=== PATIENT | male | born 1940 | race African-American/Black ===

== ENCOUNTER 2016-09-21 08:32 | Inpatient (IN) | payer OTHER ==
[2016-09-21] VITALS (11 sets, daily range): BP systolic 120–144; BP diastolic 56–74
[~2016-09-21] VITALS: Ht 170.2 cm; Wt 73.2 kg
[~2016-09-21 08:32] MED LIST: ASPIR-LOW81 MG PO; ATORVASTATIN CA80 MG PO; CARVEDILOL6.25 MG PO; CLOPIDOGREL75 MG PO; LIPITOR20 MG PO; LISINOPRIL5 MG PO; LOVENOX80 MG/0.8 SC; NICOTINE PATCH1 EAC1 TD; NITROSTAT0.4 MG SL; NORCO 5/3251 TABLET PO; RANITIDINE HCL300 M1 PO; WARFARIN SODIU7.5 MG PO
[2016-09-21 08:50] LABS: HEMATOCRIT 24.9 % (38.0-50.0); MCH 31.2 PG (29.0-34.0); MCHC 30.9 G/DL (30.0-36.0); MCV 100.8 FL (86-99); MEAN PLAT.VOLUME 8.8 uM^3 (9.0-12.4); PLATELET COUNT 240 K/uL (156-360); RBC DIS.WIDTH-CV 14.7 % (11.8-14.6); RBC DIS.WIDTH-SD 51.1 % (39-53); RED BLOOD COUNT 2.47 M/uL (4.00-5.50); WHITE BLOOD COUNT 6.6 K/uL (4.1-10.2)
[2016-09-21 08:59] LABS: CHLORIDE 108 mEq/L (99-109); SODIUM 141 mEq/L (136-147)
[2016-09-21 09:01] LABS: GLUCOSE 87 mg/dL (70-99)
[2016-09-21 09:02] LABS: ANION GAP 10 MEQ/L (2-14)
[2016-09-21 09:04] LABS: GFR ESTIMATE (CALCULATED) 58 mL/min/
[2016-09-21 09:05] LABS: UREA NITROGEN (BUN) 29 mg/dL (9-23)
[2016-09-21 09:11] LABS: TROP-I INTERPRETATION NEGATIVE; TROPONIN-I 0.03 ng/mL (0.0-0.30)
[2016-09-21] MEDS ORDERED: PLAVIX75 MG PO (09:32)
[2016-09-21] MEDS ORDERED: ASPIR 8181 M1 PO (09:33)
[2016-09-21] MEDS ORDERED: PRINIVIL20 MG PO (09:33)
[2016-09-21] MEDS ORDERED: WARFARIN SODIU2.5 MG PO ×2 (09:34)
[2016-09-21 10:01] LABS: ADD MIUA? NO; BILIRUBIN NEGATIVE; BLOOD NEGATIVE; GLUCOSE (STRIP) NEGATIVE; KETONES NEGATIVE; LEUKOCYTES NEGATIVE; NITRITE NEGATIVE; PROTEIN (STRIP) NEGATIVE; UCUL ADDED? NO; UROBILINOGEN 0.2 MG/DL (0.2-1.0)
[2016-09-21 10:02] LABS: COLOR LT YELLOW ((YELLOW))
[2016-09-21 10:49] LABS: MCH 31.6 PG (29.0-34.0); MCHC 31.6 G/DL (30.0-36.0); MEAN PLAT.VOLUME 9.1 uM^3 (9.0-12.4); PLATELET COUNT 229 K/uL (156-360); RBC DIS.WIDTH-CV 14.5 % (11.8-14.6); RBC DIS.WIDTH-SD 49.7 % (39-53); WHITE BLOOD COUNT 6.9 K/uL (4.1-10.2)
[2016-09-21 11:19] LABS: PROTHROMBIN TIME 20.9 (9.2-11.2)
[2016-09-21 15:33] LABS: TROP-I INTERPRETATION NEGATIVE; TROPONIN-I 0.03 ng/mL (0.0-0.30)
[2016-09-21 21:05] LABS: HEMATOCRIT 28.9 % (38.0-50.0)
[2016-09-21 21:07] LABS: MCV 94.4 FL (86-99)
[2016-09-22] VITALS (7 sets, daily range): BP systolic 90–171; BP diastolic 50–87
[2016-09-22 06:28] LABS: INTER. NORMALIZED RATIO 1.8; PROTHROMBIN TIME 18.8 (9.2-11.2)
[2016-09-22 06:31] LABS: ANION GAP 6 MEQ/L (2-14); CHLORIDE 107 MEQ/L (99-109); GFR ESTIMATE (CALCULATED) > 59 mL/min/; GLUCOSE 102 mg/dL (70-99); POTASSIUM 3.9 MEQ/L (3.7-5.4); SAMPLE HEMOLYSIS CHECK 0; SAMPLE ICTERIC CHECK 0; SAMPLE LIPEMIA CHECK 0; SODIUM 141 MEQ/L (136-147); UREA NITROGEN (BUN) 24 mg/dL (9-23)
[2016-09-22 07:17] LABS: HEMATOCRIT 28.6 % (38.0-50.0); MCH 31.7 PG (29.0-34.0); MCHC 33.6 G/DL (30.0-36.0); MCV 94.4 FL (86-99); MEAN PLAT.VOLUME 9.2 uM^3 (9.0-12.4); PLATELET COUNT 194 K/uL (156-360); RBC DIS.WIDTH-CV 16.4 % (11.8-14.6)
[2016-09-22 07:49] LABS: RED BLOOD COUNT 3.03 M/uL (4.00-5.50)
[2016-09-22 15:15] LABS: HEMATOCRIT 28.8 % (38.0-50.0); MCV 95.4 FL (86-99)
[2016-09-23 03:33] VITALS: BP 106/60
[2016-09-23 06:34] LABS: HEMATOCRIT 28.9 % (38.0-50.0); MCH 31.4 PG (29.0-34.0); MCHC 32.9 G/DL (30.0-36.0); MCV 95.4 FL (86-99); MEAN PLAT.VOLUME 9.3 uM^3 (9.0-12.4); PLATELET COUNT 193 K/uL (156-360); RBC DIS.WIDTH-CV 15.5 % (11.8-14.6); RED BLOOD COUNT 3.03 M/uL (4.00-5.50); WHITE BLOOD COUNT 6.7 K/uL (4.1-10.2)
[2016-09-23 06:55] LABS: ANION GAP 7 MEQ/L (2-14); CHLORIDE 108 MEQ/L (99-109); GFR ESTIMATE (CALCULATED) > 59 mL/min/; GLUCOSE 95 mg/dL (70-99); POTASSIUM 4.1 MEQ/L (3.7-5.4); SAMPLE HEMOLYSIS CHECK 0; SAMPLE ICTERIC CHECK 0; SAMPLE LIPEMIA CHECK 0; SODIUM 142 MEQ/L (136-147); UREA NITROGEN (BUN) 20 mg/dL (9-23)
[2016-09-23 07:33] VITALS: BP 145/70
[2016-09-23] MEDS ORDERED: PROTONIX40 MG PO (08:47)
== END 2016-09-23 10:52 | disposition home or self-care (01) | DRG 379 ==
LOC: EME 08:32 → 5SOUTH 10:19 → EDOF 10:19 → 5SOUTH 12:30
PROVIDERS: Emergency Medicine; Internal Medicine; Internal Medicine Gastroenterology; Nurse Practitioner Adult Health
PROC: 30233N1 Transfusion of Nonautologous Red Blood Cells into Peripheral Vein, Percutaneous Approach (ICD-10-PCS; principal; 2016-09-21)
DX: K92.2 Gastrointestinal hemorrhage, unspecified (principal); D64.9 Anemia, unspecified; I25.2 Old myocardial infarction; R19.5 Other fecal abnormalities; I25.5 Ischemic cardiomyopathy; R06.02 Shortness of breath; K29.70 Gastritis, unspecified, without bleeding; R60.0 Localized edema; K21.9 Gastro-esophageal reflux disease without esophagitis; E78.5 Hyperlipidemia, unspecified; Z98.61 Coronary angioplasty status; Z87.891 Personal history of nicotine dependence; Z79.01 Long term (current) use of anticoagulants; Z79.82 Long term (current) use of aspirin
CPT/HCPCS: 71010; 74247; 80048; 81003; 84484; 85014; 85018; 85027; 85610; 86850; 86900; 86901; 86920; 93005; 93798; 99281; 99285; C9113; J1940; J7042; P9016

== ENCOUNTER 2016-10-24 11:17 | Inpatient (IN) | payer OTHER ==
[~2016-10-24] VITALS: Ht 170.2 cm; Wt 76.8 kg
[~2016-10-24 11:17] MED LIST changes: +ASPIR 8181 M1 PO; +PLAVIX75 MG PO; +PRINIVIL20 MG PO; +PROTONIX40 MG PO; +WARFARIN SODIU2.5 MG PO
[2016-10-24 12:01] LABS: EOSINOPHIL (%) 5.8 % (0-5); EOSINOPHIL COUNT 0.5 K/uL (0-0.3); HEMATOCRIT 30.2 % (38.0-50.0); IMMATURE GRANULOCYTE (%) 0.2 % (0.0-0.7); IMMATURE GRANULOCYTE COUNT 0.2 K/uL; LYMPHOCYTE COUNT 1.2 K/uL (1.0-2.8); MCH 30.7 PG (29.0-34.0); MCHC 32.5 G/DL (30.0-36.0); MCV 94.7 FL (86-99); MEAN PLAT.VOLUME 9.4 uM^3 (9.0-12.4); MONOCYTE (%) 5.8 % (3-12); MONOCYTE COUNT 0.5 K/uL (0-0.8); NEUTROPHIL (%) 73.7 % (45-76); NEUTROPHIL COUNT 6.2 K/uL (1.8-6.4); PLATELET COUNT 247 K/uL (156-360); RBC DIS.WIDTH-CV 14.6 % (11.8-14.6); RBC DIS.WIDTH-SD 48.4 % (39-53); RED BLOOD COUNT 3.19 M/uL (4.00-5.50)
[2016-10-24 12:03] LABS: WHITE BLOOD COUNT 8.3 K/uL (4.1-10.2)
[2016-10-24 12:11] LABS: INTER. NORMALIZED RATIO 1.8; PROTHROMBIN TIME 18.7 (9.2-11.2)
[2016-10-24 12:15] LABS: CHLORIDE 111 mEq/L (99-109); POTASSIUM 4.5 mEq/L (3.7-5.4); SODIUM 142 mEq/L (136-147)
[2016-10-24 12:17] LABS: GLUCOSE 89 mg/dL (70-99)
[2016-10-24 12:18] LABS: ANION GAP 9 MEQ/L (2-14)
[2016-10-24 12:19] LABS: TOTAL BILIRUBIN 0.5 mg/dL (0.0-1.0)
[2016-10-24 12:20] LABS: ALKALINE PHOSPHATASE 109 IU/L (3-129); GFR ESTIMATE (CALCULATED) 54 mL/min/
[2016-10-24 12:22] LABS: UREA NITROGEN (BUN) 30 mg/dL (9-23)
[2016-10-24] MEDS ORDERED: COUMADIN3 MG PO (15:10)
[2016-10-24] MEDS ORDERED: COUMADIN5 MG PO (15:12)
[2016-10-24] MEDS ORDERED: PROTONIX40 MG PO (15:15)
[2016-10-24] MEDS ORDERED: COREG6.25 M1 PO (15:16)
[2016-10-24 17:03] VITALS: BP 171/76
[2016-10-24 17:27] VITALS: BP 171/76
[2016-10-25] VITALS (7 sets, daily range): BP systolic 122–152; BP diastolic 62–81
[2016-10-25 07:15] LABS: HEMATOCRIT 26.7 % (38.0-50.0); MCH 29.6 PG (29.0-34.0); MCHC 31.5 G/DL (30.0-36.0); MEAN PLAT.VOLUME 8.9 uM^3 (9.0-12.4); PLATELET COUNT 181 K/uL (156-360); RBC DIS.WIDTH-CV 14.9 % (11.8-14.6); RBC DIS.WIDTH-SD 51.4 % (39-53); RED BLOOD COUNT 2.84 M/uL (4.00-5.50)
[2016-10-25 07:16] LABS: WHITE BLOOD COUNT 5.7 K/uL (4.1-10.2)
[2016-10-25 07:29] LABS: ANION GAP 6 MEQ/L (2-14); CHLORIDE 110 MEQ/L (99-109); GFR ESTIMATE (CALCULATED) > 59 mL/min/; GLUCOSE 91 mg/dL (70-99); MAGNESIUM 1.8 mg/dl (1.3-2.7); POTASSIUM 3.9 MEQ/L (3.7-5.4); SAMPLE HEMOLYSIS CHECK 0; SAMPLE ICTERIC CHECK 0; SAMPLE LIPEMIA CHECK 0; SODIUM 141 MEQ/L (136-147); UREA NITROGEN (BUN) 24 mg/dL (9-23)
[2016-10-25 09:10] LABS: INTERNAL CONTROL VALID? YES
[2016-10-26 03:39] VITALS: BP 133/71
[2016-10-26 06:45] LABS: EOSINOPHIL (%) 6.4 % (0-5); EOSINOPHIL COUNT 0.3 K/uL (0-0.3); HEMATOCRIT 28.2 % (38.0-50.0); IMMATURE GRANULOCYTE (%) 0.2 % (0.0-0.7); LYMPHOCYTE COUNT 1.1 K/uL (1.0-2.8); MCH 29.7 PG (29.0-34.0); MCHC 31.9 G/DL (30.0-36.0); MCV 93.1 FL (86-99); MEAN PLAT.VOLUME 9.2 uM^3 (9.0-12.4); MONOCYTE (%) 7.4 % (3-12); MONOCYTE COUNT 0.4 K/uL (0-0.8); NEUTROPHIL (%) 63.7 % (45-76); NEUTROPHIL COUNT 3.1 K/uL (1.8-6.4); PLATELET COUNT 198 K/uL (156-360); RBC DIS.WIDTH-CV 14.8 % (11.8-14.6); RBC DIS.WIDTH-SD 50.7 % (39-53); RED BLOOD COUNT 3.03 M/uL (4.00-5.50); WHITE BLOOD COUNT 4.9 K/uL (4.1-10.2)
[2016-10-26 07:33] LABS: INTER. NORMALIZED RATIO 1.6; PROTHROMBIN TIME 16.5 (9.2-11.2); PTT 30.8 (25-32)
[2016-10-26 07:53] VITALS: BP 115/76
[2016-10-26 11:17] VITALS: BP 129/78
[2016-10-26 14:55] VITALS: BP 144/71
[2016-10-26 16:32] VITALS: BP 152/81
[2016-10-26 20:02] VITALS: BP 167/90
[2016-10-27 00:02] VITALS: BP 137/72
[2016-10-27 03:49] VITALS: BP 147/72
[2016-10-27 07:57] VITALS: BP 123/66
== END 2016-10-27 12:50 | disposition home or self-care (01) | DRG 379 ==
LOC: EME 11:17 → EDOF 14:47 → 5SOUTH 14:47
PROVIDERS: Internal Medicine; Physician Assistant; Specialist
PROC: 0DJ08ZZ Inspection of Upper Intestinal Tract, Via Natural or Artificial Opening Endoscopic (ICD-10-PCS; principal; 2016-10-26)
DX: K92.1 Melena (principal); I25.10 Atherosclerotic heart disease of native coronary artery without angina pectoris; I12.9 Hypertensive chronic kidney disease with stage 1 through stage 4 chronic kidney disease, or unspecified chronic kidney disease; K29.30 Chronic superficial gastritis without bleeding; E78.5 Hyperlipidemia, unspecified; N18.9 Chronic kidney disease, unspecified; K44.9 Diaphragmatic hernia without obstruction or gangrene; D64.9 Anemia, unspecified; R35.0 Frequency of micturition; K57.30 Diverticulosis of large intestine without perforation or abscess without bleeding; I25.5 Ischemic cardiomyopathy; J43.9 Emphysema, unspecified; K21.9 Gastro-esophageal reflux disease without esophagitis; Z86.010 Personal history of colon polyps; Z79.01 Long term (current) use of anticoagulants; Z87.891 Personal history of nicotine dependence; I25.2 Old myocardial infarction; Z98.61 Coronary angioplasty status; Z79.82 Long term (current) use of aspirin; Z79.02 Long term (current) use of antithrombotics/antiplatelets; Z82.49 Family history of ischemic heart disease and other diseases of the circulatory system; Z80.9 Family history of malignant neoplasm, unspecified
CPT/HCPCS: 71010; 80048; 80053; 81003; 82272; 83735; 85025; 85027; 85610; 85730; 93005; 99281; 99284; C9113; J3010; J7030

== ENCOUNTER 2016-11-23 14:55 | Emergency (ER) | payer OTHER ==
[~2016-11-23] VITALS: Ht 170.2 cm; Wt 79.2 kg
[~2016-11-23 14:55] MED LIST changes: +COREG6.25 M1 PO; +COUMADIN3 MG PO; +COUMADIN5 MG PO
[2016-11-23 15:26] LABS: HEMATOCRIT 28.3 % (38.0-50.0); MCH 29.3 PG (29.0-34.0); MCHC 31.8 G/DL (30.0-36.0); MCV 92.2 FL (86-99); MEAN PLAT.VOLUME 9.4 uM^3 (9.0-12.4); PLATELET COUNT 222 K/uL (156-360); RBC DIS.WIDTH-CV 14.1 % (11.8-14.6); RBC DIS.WIDTH-SD 47.3 % (39-53); RED BLOOD COUNT 3.07 M/uL (4.00-5.50); WHITE BLOOD COUNT 6.6 K/uL (4.1-10.2)
[2016-11-23 15:37] LABS: CHLORIDE 111 mEq/L (99-109); POTASSIUM 4.1 mEq/L (3.7-5.4); SODIUM 142 mEq/L (136-147)
[2016-11-23 15:39] LABS: GLUCOSE 122 mg/dL (70-99)
[2016-11-23 15:40] LABS: ANION GAP 10 MEQ/L (2-14)
[2016-11-23 15:42] LABS: GFR ESTIMATE (CALCULATED) 54 mL/min/
[2016-11-23 15:43] LABS: UREA NITROGEN (BUN) 31 mg/dL (9-23)
[2016-11-23 15:50] LABS: TROP-I INTERPRETATION NEGATIVE; TROPONIN-I 0.01 ng/mL (0.0-0.30)
[2016-11-23 15:57] LABS: INTER. NORMALIZED RATIO 1.1; PROTHROMBIN TIME 10.7 (9.2-11.2)
[2016-11-23 17:40] VITALS: BP 115/61
== END 2016-11-23 17:42 | disposition home or self-care (01) ==
LOC: EME 14:55
DX: R19.5 Other fecal abnormalities (principal); Z79.02 Long term (current) use of antithrombotics/antiplatelets; D64.9 Anemia, unspecified; J44.9 Chronic obstructive pulmonary disease, unspecified; I10 Essential (primary) hypertension; I25.2 Old myocardial infarction; K21.9 Gastro-esophageal reflux disease without esophagitis; Z79.82 Long term (current) use of aspirin; Z87.891 Personal history of nicotine dependence
CPT/HCPCS: 74022; 80048; 81003; 84484; 85027; 85610; 86850; 86900; 86901; 93005; 99281; 99283

== ENCOUNTER 2017-05-21 17:36 | Inpatient (IN) | payer OTHER ==
[~2017-05-21] VITALS: Ht 170.2 cm; Wt 80.0 kg
[~2017-05-21 17:36] MED LIST changes: +COREG12.5 M1 PO; -COREG6.25 M1 PO; -PRINIVIL20 MG PO; +ZESTRIL40 MG PO
[2017-05-21 18:07] LABS: HEMATOCRIT 31.1 % (38.0-50.0); MCHC 30.9 G/DL (30.0-36.0); MCV 87.6 FL (86-99); MEAN PLAT.VOLUME 9.8 uM^3 (9.0-12.4); PLATELET COUNT 195 K/uL (156-360); RBC DIS.WIDTH-CV 17.3 % (11.8-14.6); RBC DIS.WIDTH-SD 55.8 % (39-53); RED BLOOD COUNT 3.55 M/uL (4.00-5.50); WHITE BLOOD COUNT 7.3 K/uL (4.1-10.2)
[2017-05-21 18:16] LABS: CARBON DIOXIDE (BICARBONATE) 28.5 MEQ/L (20-31)
[2017-05-21 18:24] LABS: CHLORIDE 109 mEq/L (99-109); POTASSIUM 4.2 mEq/L (3.7-5.4); SODIUM 143 mEq/L (136-147)
[2017-05-21 18:25] LABS: GLUCOSE 94 mg/dL (70-99)
[2017-05-21 18:27] LABS: ANION GAP 14 MEQ/L (2-14)
[2017-05-21 18:29] LABS: GFR ESTIMATE (CALCULATED) > 59 mL/min/
[2017-05-21 18:30] LABS: UREA NITROGEN (BUN) 25 mg/dL (9-23)
[2017-05-21 18:34] LABS: TROP-I INTERPRETATION NEGATIVE; TROPONIN-I 0.01 ng/mL (0.0-0.30)
[2017-05-21 18:59] LABS: ADD MIUA? NO; BILIRUBIN NEGATIVE; BLOOD NEGATIVE; COLOR YELLOW ((YELLOW)); GLUCOSE (STRIP) NEGATIVE; KETONES NEGATIVE; LEUKOCYTES NEGATIVE; NITRITE NEGATIVE; PROTEIN (STRIP) NEGATIVE; SPECIFIC GRAVITY 1.016 (1.000-1.030); UROBILINOGEN 0.2 MG/DL (0.2-1.0)
[2017-05-21 20:04] LABS: UCUL ADDED? NO
[2017-05-21] MEDS ORDERED: FUROSEMIDE20 MG PO (20:27)
[2017-05-21] MEDS ORDERED: SPIRIVA18 MCG IH (20:27)
[2017-05-21] MEDS ORDERED: BREO ELLIPTA 21 EACH IH (20:27)
[2017-05-22 00:56] VITALS: BP 109/56
[2017-05-22 06:29] LABS: EOSINOPHIL COUNT 0.1 K/uL (0-0.3); IMMATURE GRANULOCYTE (%) 0.5 % (0.0-0.7); IMMATURE GRANULOCYTE COUNT 0.1 K/uL; INSTRUMENT ABS NEUTROPHIL CT 11.2 K/uL; LYMPHOCYTE COUNT 0.8 K/uL (1.0-2.8); MCH 27.1 PG (29.0-34.0); MCHC 31.1 G/DL (30.0-36.0); MCV 87.1 FL (86-99); MONOCYTE COUNT 0.5 K/uL (0-0.8); NEUTROPHIL (%) 87.8 % (45-76); NEUTROPHIL COUNT 11.2 K/uL (1.8-6.4); PLATELET COUNT 177 K/uL (156-360); RBC DIS.WIDTH-CV 17.7 % (11.8-14.6); RBC DIS.WIDTH-SD 56.9 % (39-53); WHITE BLOOD COUNT 12.7 K/uL (4.1-10.2)
[2017-05-22 06:57] LABS: ANION GAP 7 MEQ/L (2-14); CHLORIDE 108 MEQ/L (99-109); GFR ESTIMATE (CALCULATED) 58 mL/min/; GLUCOSE 80 mg/dL (70-99); SAMPLE HEMOLYSIS CHECK 0; SAMPLE ICTERIC CHECK 0; SAMPLE LIPEMIA CHECK 0; SODIUM 141 MEQ/L (136-147); UREA NITROGEN (BUN) 24 mg/dL (9-23)
[2017-05-22 07:07] VITALS: BP 106/61
[2017-05-22 11:00] VITALS: BP 105/55
[2017-05-22 15:20] VITALS: BP 108/57
[2017-05-22 18:22] LABS: INFLUENZA A VIRAL ANTIGEN NEGATIVE; INFLUENZA B VIRAL ANTIGEN NEGATIVE
[2017-05-22 19:41] VITALS: BP 137/64
[2017-05-23 00:37] VITALS: BP 149/70
[2017-05-23 04:12] VITALS: BP 133/68
[2017-05-23 07:35] VITALS: BP 134/73
[2017-05-23 09:23] LABS: EOSINOPHIL (%) 2.5 % (0-5); EOSINOPHIL COUNT 0.3 K/uL (0-0.3); HEMATOCRIT 29.6 % (38.0-50.0); IMMATURE GRANULOCYTE (%) 0.4 % (0.0-0.7); INSTRUMENT ABS NEUTROPHIL CT 8.9 K/uL; LYMPHOCYTE COUNT 0.7 K/uL (1.0-2.8); MCH 26.9 PG (29.0-34.0); MCHC 30.4 G/DL (30.0-36.0); MCV 88.4 FL (86-99); MEAN PLAT.VOLUME 9.9 uM^3 (9.0-12.4); MONOCYTE (%) 4.1 % (3-12); MONOCYTE COUNT 0.4 K/uL (0-0.8); NEUTROPHIL (%) 86.1 % (45-76); NEUTROPHIL COUNT 8.9 K/uL (1.8-6.4); PLATELET COUNT 189 K/uL (156-360); RBC DIS.WIDTH-CV 17.7 % (11.8-14.6); RED BLOOD COUNT 3.35 M/uL (4.00-5.50); WHITE BLOOD COUNT 10.4 K/uL (4.1-10.2)
[2017-05-23 09:49] LABS: ANION GAP 9 MEQ/L (2-14); CHLORIDE 107 MEQ/L (99-109); GFR ESTIMATE (CALCULATED) > 59 mL/min/; GLUCOSE 142 mg/dL (70-99); SAMPLE HEMOLYSIS CHECK 0; SAMPLE ICTERIC CHECK 0; SAMPLE LIPEMIA CHECK 0; SODIUM 140 MEQ/L (136-147); UREA NITROGEN (BUN) 21 mg/dL (9-23)
[2017-05-23 10:22] VITALS: BP 128/60
[2017-05-23 15:30] VITALS: BP 127/70
[2017-05-23 23:55] VITALS: BP 137/70
[2017-05-24 04:05] VITALS: BP 129/67
[2017-05-24 08:23] VITALS: BP 126/64
[2017-05-24] MEDS ORDERED: LEVOFLOXACIN750 MG PO (12:23)
== END 2017-05-24 14:00 | disposition home or self-care (01) | DRG 871 ==
LOC: EME → EDBD 17:36 → EME 17:36 → 5EAST 22:15 → EDOF 22:15 → ENRESERV 22:16 → 5EAST 05-22 00:27 → ENPENDDIS 05-24 → 5EAST 05-24 14:00
PROVIDERS: Emergency Medicine; Hospitalist; Student in an Organized Health Care Education/Training Program
DX: A41.9 Sepsis, unspecified organism (principal); J69.0 Pneumonitis due to inhalation of food and vomit; J44.1 Chronic obstructive pulmonary disease with (acute) exacerbation; I12.9 Hypertensive chronic kidney disease with stage 1 through stage 4 chronic kidney disease, or unspecified chronic kidney disease; I25.10 Atherosclerotic heart disease of native coronary artery without angina pectoris; I25.5 Ischemic cardiomyopathy; K21.9 Gastro-esophageal reflux disease without esophagitis; K22.70 Barrett's esophagus without dysplasia; E78.5 Hyperlipidemia, unspecified; R09.02 Hypoxemia; R06.03 Acute respiratory distress; N18.3 Chronic kidney disease, stage 3 (moderate); Z98.61 Coronary angioplasty status; I25.2 Old myocardial infarction; Z87.891 Personal history of nicotine dependence; Z80.3 Family history of malignant neoplasm of breast
CPT/HCPCS: 71010; 80048; 80048 91; 81003; 82803; 83605; 83880; 84484; 85025; 85027; 87040; 87070; 87205; 87502; 90686; 93005; 94640; 94640 76; 94799; 99202; 99281; 99285; J1200; J1644; J2405; J2543; J7050; J7644